=== PATIENT | male | born 1955 | race Caucasian/White ===

== ENCOUNTER 2016-11-10 06:31 | Emergency (ER) | payer OTHER ==
[~2016-11-10] VITALS: Ht 165.1 cm; Wt 83.9 kg
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
--- NOTE | 2016-11-10 06:40 | NUR ---
C-COLLAR PATIENT UNABLE TO TOLERATED HARD C-COLLAR, SOFT C-COLLAR PATIENT TOLERATING WELL.
--- NOTE | 2016-11-10 07:04 | NUR ---
[facility] DOCTOR MARK ON THE PHONE WITH [facility] DOCTOR MEANS DISCUSSING PATIENT TRANSFER. WILL ACCEPT PATIENT
[2016-11-10] MEDS ORDERED: ANCEF IV STA (07:11)
[2016-11-10] MEDS ORDERED: NS 1000ML 1,000 ML ONE (07:14)
[2016-11-10] MEDS ORDERED: NS 100ML 100 ML IV ONE (07:14)
[2016-11-10] MEDS ORDERED: ANCEF ONE (07:15)
[2016-11-10] MEDS ORDERED: ADACEL VIAL IM ONE (07:15)
--- NOTE | 2016-11-10 07:15 | NUR ---
[facility] NOTIFIED OF TRANSFER.
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
--- NOTE | 2016-11-10 07:23 | NUR ---
WOUNDS WOUNDS TO CHIN CLEANED WITH SOAP AND WATER, COVERED WITH NONSTICK DRESSING SECURED WITH MEDIPORE TAPE.
[2016-11-10] MEDS ORDERED: NS IV STA (07:27)
[2016-11-10] MEDS ORDERED: SUBLIMAZE IV STA (07:27)
[2016-11-10] MEDS ORDERED: SUBLIMAZE ONE (07:29)
[2016-11-10] MEDS ORDERED: BOOSTRIX VACCINE SYRINGE IM ONE (07:30)
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
[2016-11-10] MEDS ORDERED: ZOFRAN ONE (07:45)
[2016-11-10] MEDS ORDERED: ZOFRAN IV STA (07:54)
[2016-11-10 07:55] VITALS: BP 136/85
--- NOTE | 2016-11-10 07:55 | NUR ---
TRANSFER PATIENT LEFT ED IN ROUTE TO [facility] VIA GURNEY WITH [facility], NO DISTRESS NOTED.
--- NOTE | 2016-11-10 07:55 | NUR ---
URINE NO URINE OUT PUT NOTED DURING ED STAY.
--- NOTE | 2016-11-10 08:02 | NUR ---
REPORT REPORT GIVEN TO DEV LUNA IN [facility] ED.
== END 2016-11-10 07:55 | disposition short-term general hospital (02) ==
LOC: EDBD 06:31 → ER 07:24
DX: S01.81XA Laceration without foreign body of other part of head, initial encounter (principal); S30.1XXA Contusion of abdominal wall, initial encounter; S99.911A Unspecified injury of right ankle, initial encounter; I10 Essential (primary) hypertension; E78.00 Pure hypercholesterolemia, unspecified; V49.9XXA Car occupant (driver) (passenger) injured in unspecified traffic accident, initial encounter; Y93.89 Activity, other specified; Y92.89 Other specified places as the place of occurrence of the external cause; Y99.8 Other external cause status
CPT/HCPCS: 90471; 90715; 96374; 96375; 99285; J0690; J2405; J3010; J7030